=== PATIENT | female | born 1990 | race Caucasian/White ===

== ENCOUNTER 2020-05-22 08:11 | Emergency (ER) | payer SELFPAY ==
[~2020-05-22] VITALS: Ht 167.6 cm; Wt 74.1 kg
[2020-05-22 08:14] VITALS: Ht 167.6 cm; Wt 74.1 kg
[2020-05-22] MEDS ORDERED: ADDERALL 20 MG20 M1 PO (08:17)
[2020-05-22] MEDS ORDERED: PEPCID AC20 MG PO (08:17)
[2020-05-22] MEDS ORDERED: OMEPRAZOLE20 M1 PO (08:18)
[2020-05-22 08:37] LABS: BASOPHILS 0.2 % (0-2); EOSINOPHILS 5.9 % (0-7); HEMATOCRIT 38.1 % (36.0-48.0); HEMOGLOBIN 12.6 g/dL (12-16); IMMATURE GRANULOCYTES 0.1 % (0-5); MCH 30.4 pg (26.0-34.0); MCHC 33.1 g/dL (31.0-37.0); MEAN PLATELET VOLUME 11.4 fL (7.4-10.4); MONOCYTES 7.2 % (2-11); NEUTROPHILS 61.6 % (40-80); PLATELET COUNT 272 10x3/uL (130-400); RBC 4.14 10x6/uL (4.00-5.40); RDW 13.2 % (11.5-14.5); WBC 8.6 10x3/uL (4.8-10.8)
[2020-05-22 08:43] LABS: CALC OSMOLALITY 277 mosm/kg (275-300); CALCIUM 8.9 mg/dL (8.5-10.1); CARBON DIOXIDE 29.2 mmol/L (21.0-32.0); CHLORIDE - SERUM 104 mmol/L (98-107); CREATININE - SERUM 0.8 mg/dL (0.6-1.3); GLUCOSE 104 mg/dL (74-106); POTASSIUM - SERUM 3.8 mmol/L (3.5-5.1); SODIUM 140 mmol/L (136-145); UREA NITROGEN 9 mg/dL (7-18); eGFR NON AFRICAN AMERICAN 90 mL/min (90-120)
[2020-05-22 09:03] LABS: ALKALINE PHOSPHATASE 44 U/L (30-120); ALT (SGPT) 22 U/L (10-68); BILIRUBIN - TOTAL 0.34 mg/dL (0.2-1.3); PROTEIN - SERUM 7.2 g/dL (6.4-8.2)
[2020-05-22 11:13] VITALS: BP 119/74
== END 2020-05-22 11:13 | disposition home or self-care (01) ==
LOC: D.ER 08:11
PROVIDERS: Family Medicine
DX: E86.0 Dehydration (principal); F41.9 Anxiety disorder, unspecified; R55 Syncope and collapse